=== PATIENT | female | born 1995 | race Caucasian/White ===

== ENCOUNTER 2017-09-19 10:13 | Emergency (ER) | payer MEDICARE ==
[2017-09-19] MEDS ORDERED: SODIUM CHLORIDE 0.9% 1,000 ML IV ONE (11:20)
[2017-09-19 11:54] LABS: Appearance,Urine Clear (Clear); Basophils # (A) 0.1 k/uL (0-0.2); Basophils % (A) 1 %; Bilirubin,Urine Negative (Negative); Blood,Urine Negative (Negative); Color,Urine Light Yellow; Eosinophils # (A) 0.2 k/uL (0-0.7); Eosinophils % (A) 2 %; Glucose,Urine (UA) Negative (Negative); HCT 43.6 % (34.0-46.0); HGB 15.3 gm/dL (11.4-16.0); Ketones,Urine Negative (Negative); Leukocyte Esterase,Urine Negative (Negative); Lymphocytes # (A) 2.8 k/uL (1.0-4.8); Lymphocytes % (A) 26 %; MCH 30.9 pg (25.0-35.0); MCV 88.3 fL (80.0-100.0); Mean Platelet Volume 6.4; Monocytes # (A) 0.7 k/uL (0-1.0); Monocytes % (A) 7 %; Neutrophils # (A) 6.6 k/uL (1.3-7.7); Neutrophils % (A) 62 %; Nitrite,Urine Negative (Negative); PH, Urine 6.5 (5.0-8.0); Platelet Count 336 k/uL (150-450); Protein,Urine Negative (Negative); RBC 4.94 m/uL (3.80-5.40); RDW 12.5 % (11.5-15.5); Specific Gravity,Urine 1.005 (1.001-1.035); Urobilinogen,Urine <2.0 mg/dL (<2.0); WBC 10.6 k/uL (4.0-11.0)
--- NOTE | 2017-09-19 12:00 | ED ---
General Adult HPI - General Chief complaint: Vaginal Bleeding Stated complaint: Vaginal bleeding/ craming 8 weeks Time Seen by Provider: 09/19/17 11:12 Source: patient Mode of arrival: ambulatory Limitations: no limitations - History of Present Illness Initial comments: 21 years old female complaining about lower abdominal cramps she is 8 weeks and she noticed some off-and-on vaginal bleed that been going on for last 2 days it was quite heavy last night slow down now she still has a cramps but she refused any pain meds denies any fever no chills this is her first ever has no history of ectopics in the in the past where another no ectopic history in the family as well. Review of system is unremarkable otherwise no frequency urgency dysuria. Patient stated she had a 3 past at home those all 3 were positive - Related Data Home Medications Medication Instructions Recorded Confirmed Bko-Tkyf-Epxbj Acid 1 cap PO PC-LUNCH 09/19/17 09/19/17 [-U Capsule (formulary)] Allergies Allergy/AdvReac Type Severity Reaction Status Date / Time No Known Allergies Allergy Verified 09/19/17 11:07 Review of Systems ROS Statement: Those systems with pertinent positive or pertinent negative responses have been documented in the HPI. ROS Other: All systems not noted in ROS Statement are negative. Past Medical History Additional Past Medical History / Comment(s): POLICYSTIC OVARIAN SYNDROME. History of Any Multi-Drug Resistant Organisms: None Reported Past Surgical History: Orthopedic Surgery Additional Past Surgical History / Comment(s): KNEE SURGERY Past Psychological History: No Psychological Hx Reported Smoking Status: Current every day smoker Past Alcohol Use History: None Reported Past Drug Use History: None Reported General Exam - General Exam Comments Initial Comments: General: The patient is awake and alert, in no distress, and does not appear acutely ill. Skin: Skin is warm and dry and no rashes or lesions are noted. Eye: Pupils are equal, round and reactive to light, extra-ocular movements are intact; there is normal conjunctiva bilaterally. Ears, nose, mouth and throat: There are moist mucous membranes and no oral lesions. Neck: The neck is supple, there is no tenderness or JVD. Cardiovascular: There is a regular rate and rhythm. No murmur, rub or gallop is appreciated. Respiratory: To auscultation bilateral, no wheezing no rhonchi no distress respiratory garnica noticed Gastrointestinal: Mild tenderness noticed in the right lower quadrant area, suprapubic area and the area over the left ovary Back: There is no tenderness to palpation in the midline. There is no obvious deformity. Musculoskeletal: Normal ROM, no tenderness, There is no pedal edema. There is no calf tenderness or swelling. No cords were appreciated. Neurological: CN II-XII intact, Cranial nerves III through XII are intact. There are no obvious motor or sensory deficits. Coordination appears grossly intact. Speech is normal. Psychiatric: Cooperative, appropriate mood & affect, normal judgment. Limitations: no limitations Course Vital Signs 09/19/17 10:49 Temperature 98 F Pulse Rate 95 Respiratory 16 Rate Blood Pressure 138/76 O2 Sat by Pulse 99 Oximetry Patient is reassessed, urinalysis, CBC, comprehensive metabolic [id number] unremarkable ultrasound of the pelvis ruled out any intrauterine , Patient is reassessed 3 times, labs reviewed imaging was reviewed and discussed with the patient's patient quantitative beta hCG is very low, as soon as we can do the pelvic exam disposition be done she is advised to follow with the serial beta hCG quantitative, , Pelvic exam did not show any lesions on the genitals, no vaginal discharge noticed she is tender or there is a cervical motion tenderness, cultures were done she be discharged to follow with the family doctor to do a beta hCG quantitative or return to ER if pain gets worse or if bleeding gets worse ectopic is still one of the differential diagnosis at this time considering there is no intrauterine Medical Decision Making - Lab Data Result diagrams: 09/19/17 11:45 09/19/17 11:45 Lab Results 09/19/17 09/19/17 09/19/17 Range/Units 11:45 11:45 11:45 WBC 10.6 (4.0-11.0) k/uL RBC 4.94 (3.80-5.40) m/uL Hgb 15.3 (11.4-16.0) gm/dL Hct 43.6 (34.0-46.0) % MCV 88.3 (80.0-100.0) fL MCH 30.9 (25.0-35.0) pg MCHC 35.0 (31.0-37.0) g/dL RDW 12.5 (11.5-15.5) % Plt Count 336 (150-450) k/uL Neutrophils % 62 % Lymphocytes % 26 % Monocytes % 7 % Eosinophils % 2 % Basophils % 1 % Neutrophils # 6.6 (1.3-7.7) k/uL Lymphocytes # 2.8 (1.0-4.8) k/uL Monocytes # 0.7 (0-1.0) k/uL Eosinophils # 0.2 (0-0.7) k/uL Basophils # 0.1 (0-0.2) k/uL Sodium 144 (137-145) mmol/L Potassium 4.5 (3.5-5.1) mmol/L Chloride 105 (98-107) mmol/L Carbon Dioxide 27 (22-30) mmol/L Anion Gap 12 mmol/L BUN 10 (7-17) mg/dL Creatinine 0.52 (0.52-1.04) mg/dL Est GFR (CKD-EPI)AfAm >90 (>60 ml/min/1.73 sqM) Est GFR (CKD-EPI)NonAf >90 (>60 ml/min/1.73 sqM) Glucose 81 (74-99) mg/dL Calcium 9.5 (8.4-10.2) mg/dL Total Bilirubin 0.4 (0.2-1.3) mg/dL AST 30 (14-36) U/L ALT 27 (9-52) U/L Alkaline Phosphatase 109 (38-126) U/L Total Protein 7.8 (6.3-8.2) g/dL Albumin 4.4 (3.5-5.0) g/dL HCG, Quant <2.4 mIU/mL Urine Color Light Yellow Urine Appearance Clear (Clear) Urine pH 6.5 (5.0-8.0) Ur Specific [place] 1.005 (1.001-1.035) Urine Protein Negative (Negative) Urine Glucose (UA) Negative (Negative) Urine Ketones Negative (Negative) Urine Blood Negative (Negative) Urine Nitrite Negative (Negative) Urine Bilirubin Negative (Negative) Urine Urobilinogen <2.0 (<2.0) mg/dL Ur Leukocyte Esterase Negative (Negative) Disposition Clinical Impression: Vaginal bleeding Clinical Impression: (Ruled Out): Disposition: HOME SELF-CARE Condition: Good Referrals: Anshul Zamora MD [Primary Care Provider] - 1-2 days
[2017-09-19 12:11] LABS: ALT 27 U/L (9-52); AST 30 U/L (14-36); Albumin 4.4 g/dL (3.5-5.0); Alkaline Phosphatase 109 U/L (38-126); Anion Gap 12 mmol/L; Blood Urea Nitrogen 10 mg/dL (7-17); Calcium 9.5 mg/dL (8.4-10.2); Carbon Dioxide 27 mmol/L (22-30); Chloride 105 mmol/L (98-107); Glucose 81 mg/dL (74-99); Sodium 144 mmol/L (137-145); Total Bilirubin 0.4 mg/dL (0.2-1.3); Total Protein 7.8 g/dL (6.3-8.2)
[2017-09-19 12:12] LABS: Potassium 4.5 mmol/L (3.5-5.1)
[2017-09-19 12:26] LABS: HCG,Quantitative Serum <2.4 mIU/mL
--- NOTE | 2017-09-19 12:56 | US ---
EXAMINATION TYPE: US OB <=14 wks transvag DATE OF EXAM: 09/19/2017 COMPARISON: NONE CLINICAL HISTORY: Pain. EXAM PERFORMED: Transvaginal (TV) and Transabdominal (TA) EXAM MEASUREMENTS: GESTATIONAL AGE / DATING Physician Established: Not yet established Dates by LMP: (8 weeks/5 days) EDC: 04/26/18 Dates by First Scan: No previous this is first scan Dates by Current Scan for: No IUP seen at this time MATERNAL ANATOMY Uterus: 5.4 x 3.2 x 3.9cm Right Ovary: 4.0 x 2.2 x 2.2cm Left Ovary: obscured by overlying bowel gas Post CDS / Adnexa: wnl GESTATION / SURVEY IUP: No IUP seen at this time Date of LMP: 07/20/17 Beta HcG (if available): <2.4 IMPRESSION: No intrauterine is evident.
[2017-09-19 14:46] VITALS: BP 132/68; PULSE 78; RESP 18; TEMP 97.6
[2017-09-21 08:32] LABS: C. trachomatis,PCR Positive (Neg,Equiv); Chlamydia trachomatis Source Cervix; N. gonorrhoeae,PCR Negative (Neg,Equiv); Neisseria Source Cervix
== END 2017-09-19 14:47 | disposition home or self-care (01) ==
LOC: EC 10:13
DX: O20.9 Hemorrhage in early pregnancy, unspecified (principal); O26.891 Other specified pregnancy related conditions, first trimester; R10.31 Right lower quadrant pain; O99.331 Smoking (tobacco) complicating pregnancy, first trimester; F17.200 Nicotine dependence, unspecified, uncomplicated; Z3A.08 8 weeks gestation of pregnancy
CPT/HCPCS: 36415; 76801; 76817; 80053; 81003; 84702; 85025; 87070; 87205; 87491; 87591; 87808; 96360; 96361; 99284

== ENCOUNTER 2018-09-04 19:13 | Emergency (ER) | payer MEDICARE ==
[2018-09-04] MEDS ORDERED: PROMETHAZ-COD 6.25-10 MG/5 ML 5 ML CUP PO STA (20:23)
[2018-09-04] MEDS ORDERED: IBUPROFEN 600 MG TAB PO STA (20:23)
--- NOTE | 2018-09-04 20:54 | XR ---
EXAMINATION: XR chest 2V DATE AND TIME: 09/04/2018 8:44 PM CLINICAL INDICATION: PHH; Pain TECHNIQUE: Departmental protocol COMPARISON: None FINDINGS: The lungs are clear. The pleural spaces are negative. The cardiac silhouette is not enlarged. The remainder of the mediastinal silhouette is unremarkable. The skeletal structures and soft tissues are negative for acute findings. IMPRESSION: NO ACUTE PROCESS.
[2018-09-04] MEDS ORDERED: SODIUM CHLORIDE 0.9% 1,000 ML IV ONE (21:32)
[2018-09-04 22:00] LABS: Basophils % (A) 1 %; Eosinophils % (A) 0 %; HCT 43.7 % (34.0-46.0); HGB 14.5 gm/dL (11.4-16.0); Lymphocytes # (A) 1.6 k/uL (1.0-4.8); Lymphocytes % (A) 19 %; MCH 30.4 pg (25.0-35.0); MCHC 33.3 g/dL (31.0-37.0); MCV 91.3 fL (80.0-100.0); Mean Platelet Volume 6.4; Monocytes # (A) 0.8 k/uL (0-1.0); Monocytes % (A) 9 %; Neutrophils % (A) 69 %; Platelet Count 224 k/uL (150-450); RBC 4.78 m/uL (3.80-5.40); WBC 8.8 k/uL (4.0-11.0)
[2018-09-04 22:07] LABS: ALT 30 U/L (9-52); AST 20 U/L (14-36); Albumin 4.1 g/dL (3.5-5.0); Alkaline Phosphatase 114 U/L (38-126); Anion Gap 10 mmol/L; Blood Urea Nitrogen 9 mg/dL (7-17); Calcium 9.1 mg/dL (8.4-10.2); Carbon Dioxide 24 mmol/L (22-30); Chloride 109 mmol/L (98-107); Glucose 97 mg/dL (74-99); Potassium 3.9 mmol/L (3.5-5.1); Sodium 143 mmol/L (137-145); Total Bilirubin 0.2 mg/dL (0.2-1.3); Total Protein 7.3 g/dL (6.3-8.2)
--- NOTE | 2018-09-04 22:41 | ED ---
General Adult HPI - General Chief complaint: Syncope Stated complaint: Cough Time Seen by Provider: 09/04/18 19:38 Source: patient Mode of arrival: ambulatory Limitations: no limitations - History of Present Illness Initial comments: 22-year-old female patient presents to the emergency department today for evaluation of increasing cough, shortness of breath, and syncope. Patient states that she has diagnosed with influenza A yesterday. States she was started on prednisone, pro-air, and ibuprofen. States she has been sick for the last 4-5 days with cough, nasal congestion, sore throat, and fevers. States that this afternoon she had a coughing episode and went to lie on the couch next thing she knew she woke up on her bedroom floor. She is unsure if she passed out or not. Patient states that she has a persistent cough that causes pain to her chest. She states that she feels short of breath. She denies any sputum production or hemoptysis. Patient denies any current headache, blurred vision, double vision, dizziness, or weakness. Denies any history of syncope. States that she recently did stop taking control. She is unsure she may be . Patient denies any recent rash, abdominal pain, nausea, vomiting, diarrhea, constipation, back pain, numbness, tingling, dizziness, weakness, hematuria, dysuria, urinary urgency, urinary frequency, headache, visual changes, or any other complaints. - Related Data Home Medications Medication Instructions Recorded Confirmed Ibuprofen [Motrin] 800 mg PO TID PRN 09/04/18 09/04/18 predniSONE 10 mg PO DAILY 09/04/18 09/04/18 Previous Rx's Medication Instructions Recorded Azithromycin [Zithromax Z-pack] 0 mg PO DIRECTED #6 tab 09/04/18 Promethazine 6.25MG/5Ml [Phenergan 6.25 mg PO Q6H #100 ml 09/04/18 Syrup] Allergies Allergy/AdvReac Type Severity Reaction Status Date / Time No Known Allergies Allergy Verified 09/04/18 20:49 Review of Systems ROS Statement: Those systems with pertinent positive or pertinent negative responses have been documented in the HPI. ROS Other: All systems not noted in ROS Statement are negative. Past Medical History Additional Past Medical History / Comment(s): POLICYSTIC OVARIAN SYNDROME. History of Any Multi-Drug Resistant Organisms: None Reported Past Surgical History: Orthopedic Surgery Additional Past Surgical History / Comment(s): KNEE SURGERY Past Psychological History: No Psychological Hx Reported Smoking Status: Current every day smoker Past Alcohol Use History: None Reported Past Drug Use History: None Reported General Exam Limitations: no limitations General appearance: alert, in no apparent distress, other (This is a well- developed, well-nourished adult female patient in no acute distress. Vital signs upon presentation are temperature 98.5F, pulse 80, respirations 20, blood pressure 127/88, pulse ox 99% on room air.) Eye exam: Present: normal appearance, PERRL, EOMI. Absent: scleral icterus, conjunctival injection, periorbital swelling ENT exam: Present: normal exam, normal oropharynx, mucous membranes moist, TM's normal bilaterally Respiratory exam: Present: normal lung sounds bilaterally. Absent: respiratory distress, wheezes, rales, rhonchi, stridor Cardiovascular Exam: Present: normal rhythm, tachycardia, normal heart sounds. Absent: systolic murmur, diastolic murmur, rubs, gallop, clicks GI/Abdominal exam: Present: soft, normal bowel sounds. Absent: distended, tenderness, guarding, rebound, rigid Neurological exam: Present: alert, oriented X3, CN II-XII intact, other (Strength in all 4 extremities is 5/5.) Psychiatric exam: Present: normal affect, normal mood Skin exam: Present: warm, dry, intact, normal color. Absent: rash Course Vital Signs 09/04/18 09/04/18 09/04/18 19:32 19:47 22:52 Temperature 98.5 F 98.8 F Pulse Rate 108 H 75 Pulse Rate [ 104 H Supine] Respiratory 20 18 Rate Blood Pressure 127/88 107/57 O2 Sat by Pulse 99 100 Oximetry 09/04/18 23:55 Temperature 98.6 F Pulse Rate 72 Pulse Rate [ Supine] Respiratory 18 Rate Blood Pressure 111/60 O2 Sat by Pulse 98 Oximetry EKG Findings - EKG Comments: EKG Findings:: EKG obtained at 1947 shows sinus tachycardia with a ventricular rate of 104, RI interval 128, QRS duration 76, QT 346, QTc 454. No evidence of ST elevation or depression. Medical Decision Making - Medical Decision Making 22-year-old female patient presents to the emergency department today for evaluation of increasing cough, shortness of breath, chest pain and a syncopal episode at home. She was diagnosed with influenza A yesterday. She is currently taking ibuprofen for fever, prednisone, and using a Pro Air inhaler. Physical examination is relatively unremarkable. Lungs are clear to auscultation with good air movement. She is neurologically intact with no focal deficits. Labs reviewed and did reveal an elevated d-dimer at 1.15, we did obtain CT angiography of the chest to rule out pulmonary embolism, there is no evidence for pulmonary embolism at this time. She did exhibit evidence of bronchitis, pneumonitis, and enlarged perihilar lymph nodes. I did discuss findings and results with the patient and she'll be discharged home with a prescription for azithromycin. She is instructed to continue taking her steroids and using the Pro Air inhaler. She'll be given a prescription for cough medication. She was instructed to inform her primary care physician of the enlarged lymph nodes have repeat testing. She is instructed to follow-up with her primary care physician for recheck as soon as possible. Return parameters were discussed in detail. She verbalizes understanding and agreed with this plan. - Lab Data Result diagrams: 09/04/18 21:45 09/04/18 21:45 Lab Results 09/04/18 09/04/18 09/04/18 Range/Units 21:45 21:45 21:45 WBC 8.8 (4.0-11.0) k/uL RBC 4.78 (3.80-5.40) m/uL Hgb 14.5 (11.4-16.0) gm/dL Hct 43.7 (34.0-46.0) % MCV 91.3 (80.0-100.0) fL MCH 30.4 (25.0-35.0) pg MCHC 33.3 (31.0-37.0) g/dL RDW 13.0 (11.5-15.5) % Plt Count 224 (150-450) k/uL Neutrophils % 69 % Lymphocytes % 19 % Monocytes % 9 % Eosinophils % 0 % Basophils % 1 % Neutrophils # 6.0 (1.3-7.7) k/uL Lymphocytes # 1.6 (1.0-4.8) k/uL Monocytes # 0.8 (0-1.0) k/uL Eosinophils # 0.0 (0-0.7) k/uL Basophils # 0.0 (0-0.2) k/uL D-Dimer 1.15 H (<0.60) mg/L FEU Sodium 143 (137-145) mmol/L Potassium 3.9 (3.5-5.1) mmol/L Chloride 109 H (98-107) mmol/L Carbon Dioxide 24 (22-30) mmol/L Anion Gap 10 mmol/L BUN 9 (7-17) mg/dL Creatinine 0.60 (0.52-1.04) mg/dL Est GFR (CKD-EPI)AfAm >90 (>60 ml/min/1.73 sqM) Est GFR (CKD-EPI)NonAf >90 (>60 ml/min/1.73 sqM) Glucose 97 (74-99) mg/dL Calcium 9.1 (8.4-10.2) mg/dL Total Bilirubin 0.2 (0.2-1.3) mg/dL AST 20 (14-36) U/L ALT 30 (9-52) U/L Alkaline Phosphatase 114 (38-126) U/L Total Protein 7.3 (6.3-8.2) g/dL Albumin 4.1 (3.5-5.0) g/dL Urine HCG, Qual (Not Detectd) 09/04/18 Range/Units 21:45 WBC (4.0-11.0) k/uL RBC (3.80-5.40) m/uL Hgb (11.4-16.0) gm/dL Hct (34.0-46.0) % MCV (80.0-100.0) fL MCH (25.0-35.0) pg MCHC (31.0-37.0) g/dL RDW (11.5-15.5) % Plt Count (150-450) k/uL Neutrophils % % Lymphocytes % % Monocytes % % Eosinophils % % Basophils % % Neutrophils # (1.3-7.7) k/uL Lymphocytes # (1.0-4.8) k/uL Monocytes # (0-1.0) k/uL Eosinophils # (0-0.7) k/uL Basophils # (0-0.2) k/uL D-Dimer (<0.60) mg/L FEU Sodium (137-145) mmol/L Potassium (3.5-5.1) mmol/L Chloride (98-107) mmol/L Carbon Dioxide (22-30) mmol/L Anion Gap mmol/L BUN (7-17) mg/dL Creatinine (0.52-1.04) mg/dL Est GFR (CKD-EPI)AfAm (>60 ml/min/1.73 sqM) Est GFR (CKD-EPI)NonAf (>60 ml/min/1.73 sqM) Glucose (74-99) mg/dL Calcium (8.4-10.2) mg/dL Total Bilirubin (0.2-1.3) mg/dL AST (14-36) U/L ALT (9-52) U/L Alkaline Phosphatase (38-126) U/L Total Protein (6.3-8.2) g/dL Albumin (3.5-5.0) g/dL Urine HCG, Qual Not Detected (Not Detectd) - Radiology Data Radiology results: report reviewed, image reviewed Two-view x-ray of the chest is obtained. Report is reviewed in its entirety. Impression by Dr. Pau Benitez shows no acute process. CT angiography of the chest was obtained. Report was reviewed in its entirety. Impression by Dr. Pau Benitez shows no evidence of filling defect to suggest pulmonary embolism. The central airways are patent. Bilateral geographic Mosaic appearance of the lungs in appearance of air trapping at the right middle lobe. Diffuse appearing bronchial wall thickening may represent bronchitis. Patchy bilateral ill-defined perihilar groundglass opacities may be related to pneumonitis or edema, clinically correlate. Suggestion of mild bilateral hilar adenopathy. Disposition Clinical Impression: Influenza A, Pneumonitis, Mediastinal lymphadenopathy Disposition: HOME SELF-CARE Condition: Good Instructions (If sedation given, give patient instructions): Influenza (ED), Pneumonia (ED) Additional Instructions: Take medications as directed. Follow-up with your primary care physician for recheck in 1-2 days. Inform your doctor of your enlarged lymph nodes in your chest, and that we recommended repeat testing. Return to the emergency department immediately for any new, worsening, or concerning symptoms. Prescriptions: Promethazine 6.25MG/5Ml [Phenergan Syrup] 6.25 mg PO Q6H #100 ml Azithromycin [Zithromax Z-pack] 0 mg PO DIRECTED #6 tab Is patient prescribed a controlled substance at d/c from ED?: No Referrals: Anshul Zamora MD [Primary Care Provider] - 1-2 days Time of Disposition: 23:29
[2018-09-04 22:55] VITALS: RESP 18
--- NOTE | 2018-09-04 23:06 | CT ---
History: ITS.REASON CT Reason: Pain Exam: CTA CHEST MIP images obtained Technique more: CTDI is 8.1 mGy and DLP is 289.6 mGy-cm. Technique more: This CT exam was performed using one or more of the following dose reduction techniques: automated exposure control, adjustment of the mA and/or kV according to patient size, and/or use of iterative reconstruction technique. Comparison: FINDINGS: No evidence of filling defect to suggest pulmonary embolism. Thoracic aorta and visualized great vessels appear within limits. No pericardial or pleural effusion. The central airways are patent. Bilateral geographic mosaic appearance of the lungs and appearance of air trapping at the right middle lobe. Diffuse appearing bronchial wall thickening may represent bronchitis. Patchy bilateral ill-defined perihilar ground glass opacities may be related to pneumonitis or edema, clinically correlate. Suggestion of mild bilateral hilar adenopathy. Sequela of previous granulomatous disease noted. IMPRESSION: No evidence of filling defect to suggest pulmonary embolism. The central airways are patent. Bilateral geographic mosaic appearance of the lungs and appearance of air trapping at the right middle lobe. Diffuse appearing bronchial wall thickening may represent bronchitis. Patchy bilateral ill-defined perihilar ground glass opacities may be related to pneumonitis or edema, clinically correlate. Suggestion of mild bilateral hilar adenopathy.
[2018-09-04] MEDS ORDERED: AZITHROMYCIN 500 MG TAB PO STA (23:29)
[2018-09-04 23:57] VITALS: BP 111/60; PULSE 72; TEMP 98.6
== END 2018-09-05 | disposition home or self-care (01) ==
LOC: EC 19:13
DX: J10.00 Influenza due to other identified influenza virus with unspecified type of pneumonia (principal); R59.0 Localized enlarged lymph nodes; J40 Bronchitis, not specified as acute or chronic; R79.1 Abnormal coagulation profile; R00.0 Tachycardia, unspecified; R55 Syncope and collapse; F17.200 Nicotine dependence, unspecified, uncomplicated; Z79.52 Long term (current) use of systemic steroids
CPT/HCPCS: 36415; 93005; 85379; 80053; 85025; 81025; 71046; 71275; 99284; 96360; 96361; Q9967

== ENCOUNTER 2018-10-27 22:10 | Emergency (ER) | payer MEDICARE ==
[2018-10-27 22:23] VITALS: BP 119/75; PULSE 85; RESP 18; TEMP 98.2
[2018-10-27] MEDS ORDERED: LIDOCAINE 1% INJ 10MG/ML (20 ML MDV) SQ ONE (23:00)
--- NOTE | 2018-10-27 23:17 | ED ---
General Adult HPI - General Chief complaint: Back Pain/Injury Stated complaint: Lump on tail bone Time Seen by Provider: 10/27/18 22:42 Source: patient Mode of arrival: ambulatory Limitations: no limitations - History of Present Illness Initial comments: 23-year-old female patient presents to the emergency department today for evaluation of a "lump" to her tailbone region with pain. Patient states she noticed the area 2 days ago and has been worsening since. Patient states the area is very tender to touch. She denies any drainage from the region. Denies any history of similar symptoms. Denies any fever or chills with this. Denies any difficulty with bowel movements or urination. Denies chance of . Patient denies any recent rash, shortness breath, chest pain, abdominal pain, nausea, vomiting, diarrhea, constipation, numbness, tingling, dizziness, weakness, hematuria, dysuria, urinary urgency, urinary frequency, headache, visual changes, or any other complaints. - Related Data Home Medications Medication Instructions Recorded Confirmed Ibuprofen [Motrin Ib] 400 mg PO Q6H PRN 10/27/18 10/27/18 Previous Rx's Medication Instructions Recorded Ibuprofen [Motrin] 600 mg PO Q8HR PRN #30 tab 10/27/18 Sulfamethoxazole/Trimethoprim 1 each PO BID #20 tablet 10/27/18 [Bactrim DS 800-160 mg] Allergies Allergy/AdvReac Type Severity Reaction Status Date / Time No Known Allergies Allergy Verified 10/27/18 22:46 Review of Systems ROS Statement: Those systems with pertinent positive or pertinent negative responses have been documented in the HPI. ROS Other: All systems not noted in ROS Statement are negative. Past Medical History Additional Past Medical History / Comment(s): POLICYSTIC OVARIAN SYNDROME. History of Any Multi-Drug Resistant Organisms: None Reported Past Surgical History: Orthopedic Surgery Additional Past Surgical History / Comment(s): KNEE SURGERY Past Psychological History: No Psychological Hx Reported Smoking Status: Current every day smoker Past Alcohol Use History: Occasional Past Drug Use History: None Reported General Exam Limitations: no limitations General appearance: alert, in no apparent distress, other (Social well- developed, well-nourished adult female patient in no acute distress. Vital signs upon presentation are temperature 98.2F, pulse 85, respirations 18, blood pressure 119/75, pulse ox 99% on room air.) Eye exam: Present: normal appearance, PERRL, EOMI. Absent: scleral icterus, conjunctival injection, periorbital swelling ENT exam: Present: normal exam, normal oropharynx, mucous membranes moist Respiratory exam: Present: normal lung sounds bilaterally. Absent: respiratory distress, wheezes, rales, rhonchi, stridor Cardiovascular Exam: Present: regular rate, normal rhythm, normal heart sounds. Absent: systolic murmur, diastolic murmur, rubs, gallop, clicks Back exam: Present: other (patient has 1cm abscess noted to the upper gluteal cleft consistent with pilonidal abscess. No surrounding cellulitis.). Absent: normal inspection Neurological exam: Present: alert, oriented X3, CN II-XII intact Psychiatric exam: Present: normal affect, normal mood Skin exam: Present: warm, dry, intact, normal color. Absent: rash Course Vital Signs 10/27/18 22:21 Temperature 98.2 F Pulse Rate 85 Respiratory 18 Rate Blood Pressure 119/75 O2 Sat by Pulse 99 Oximetry Procedures - Incision & Drainage Consent Obtained: verbal consent Indication: Pilonidal abscess Site: other (Upper gluteal fold) Size (cm): 1 Anesthetic Used: lidocaine 1% Amount (mLs): 5 I&D Cleaning Method: Betadine Scalpel Used: #11 Needle Aspiration Performed?: No Irrigation Performed?: No I&D Drainage Obtained: Pus, Blood Packing: Iodoform Culture Obtained?: Yes Patient Tolerated Procedure: well, no complications Medical Decision Making - Medical Decision Making 23-year-old female patient presents the emergency department today for evaluation of abscess to the upper gluteal fold. Physical examination did reveal 1 cm pilonidal abscess. Did perform incision and drainage should obtain culture. The area was packed with 1/4 inch iodoform packing material. Patient was started on Bactrim and given medication for pain. She is educated regarding warm compresses and sitz baths. She is instructed to follow-up with general surgery for further evaluation of the area. Return parameters were discussed in detail. She verbalizes understanding and agrees this plan. Disposition Clinical Impression: Pilonidal abscess Disposition: HOME SELF-CARE Condition: Good Instructions (If sedation given, give patient instructions): Pilonidal Cyst (ED) Additional Instructions: Do warm sitz baths or warm compresses to the area. Leave packing in for 3 days, remove after this time period. Call the surgeon for further evaluation of the area. Complete antibiotic prescription in full. Return to the emergency department immediately for any new, worsening, or concerning symptoms. Prescriptions: Sulfamethoxazole/Trimethoprim [Bactrim DS 800-160 mg] 1 each PO BID #20 tablet Ibuprofen [Motrin] 600 mg PO Q8HR PRN #30 tab PRN Reason: Pain Is patient prescribed a controlled substance at d/c from ED?: No Referrals: Anshul Zamora MD [Primary Care Provider] - 1-2 days Darío Mcintyre MD [STAFF PHYSICIAN] - 1-2 days Time of Disposition: 23:57
[2018-10-27] MEDS ORDERED: SULFAMETH-TMP DS STARTER PACK 2 TAB BTL PO STA (23:54)
[2018-10-27] MEDS ORDERED: IBUPROFEN 600 MG STARTER PACK 4 TAB BTL PO STA (23:54)
[2018-10-27] MEDS ORDERED: ACET/COD 300 MG/30 MG STARTER PACK 6 TAB BTL PO STA (23:54)
== END 2018-10-28 00:14 | disposition home or self-care (01) ==
LOC: EC 22:10
DX: L05.01 Pilonidal cyst with abscess (principal); F17.200 Nicotine dependence, unspecified, uncomplicated
CPT/HCPCS: 87070; 87205; 99283; 10080; J2001

== ENCOUNTER 2019-01-13 22:54 | Emergency (ER) | payer BC, MEDICARE ==
[2019-01-13] MEDS ORDERED: ONDANSETRON ODT 4 MG TAB PO STA (23:17)
[2019-01-13 23:25] LABS: Appearance,Urine Clear (Clear); Bilirubin,Urine Negative (Negative); Blood,Urine Negative (Negative); Color,Urine Light Yellow; Glucose,Urine (UA) Negative (Negative); Ketones,Urine Negative (Negative); Leukocyte Esterase,Urine Negative (Negative); Nitrite,Urine Negative (Negative); Protein,Urine Negative (Negative); Specific Gravity,Urine 1.006 (1.001-1.035); Urobilinogen,Urine <2.0 mg/dL (<2.0)
--- NOTE | 2019-01-13 23:28 | ED ---
Abdominal Pain HPI - General Chief Complaint: Abdominal Pain Stated Complaint: Abd pain Time Seen by Provider: 01/13/19 23:04 Source: patient Mode of arrival: ambulatory - History of Present Illness Initial Comments: This patient is 23-year-old woman who complains of having approximately 2 hours of crampy suprapubic pain. She states it started approximately 2 hours ago while she was watching television. Pain is somewhat colicky in nature. She states currently it is mild but has been up to severe intensity. She has noticed it gets a little better if she assumes a position. The pain was a little worse when she was walking. She had some associated nausea and vomiting. The patient also states that she has not had a menstrual cycle for 2 months now. The last one was approximately November 11. She denies change in urination or bowel movements. No vaginal discharge. Patient declines analgesic at initial history and physical does request something for nausea. MD Complaint: abdominal pain Onset/Timin -: hour(s) Location: suprapubic Radiation: none Migration to: no migration Severity: moderate Quality: cramping Consistency: constant Improves With: nothing Worsens With: nothing Associated Symptoms: nausea, vomiting - Related Data LMP Date: 11/11/18 LMP (females 10-50): 2 months Home Medications Medication Instructions Recorded Confirmed Acetaminophen Tab [Tylenol Tab] 650 mg PO Q6H PRN 01/13/19 01/13/19 Previous Rx's Medication Instructions Recorded Dicyclomine [Bentyl] 20 mg PO QID #15 tablet 01/14/19 Allergies Allergy/AdvReac Type Severity Reaction Status Date / Time No Known Allergies Allergy Verified 01/13/19 23:11 Review of Systems ROS Statement: Those systems with pertinent positive or pertinent negative responses have been documented in the HPI. ROS Other: All systems not noted in ROS Statement are negative. Constitutional: Denies: fever, chills Respiratory: Denies: cough, dyspnea Cardiovascular: Denies: chest pain, palpitations, edema, syncope Gastrointestinal: Reports: abdominal pain, nausea, vomiting. Denies: diarrhea, constipation, melena, hematochezia Genitourinary: Reports: abnormal menses. Denies: dysuria, hematuria, discharge Musculoskeletal: Denies: back pain Skin: Denies: rash Neurological: Denies: headache Past Medical History Additional Past Medical History / Comment(s): POLICYSTIC OVARIAN SYNDROME. History of Any Multi-Drug Resistant Organisms: None Reported Past Surgical History: Orthopedic Surgery Additional Past Surgical History / Comment(s): KNEE SURGERY Past Psychological History: No Psychological Hx Reported Smoking Status: Current every day smoker Past Alcohol Use History: Occasional Past Drug Use History: None Reported General Exam General appearance: alert, in no apparent distress Head exam: Present: atraumatic, normocephalic Eye exam: Present: normal appearance. Absent: scleral icterus, conjunctival injection Neck exam: Present: normal inspection Respiratory exam: Present: normal lung sounds bilaterally. Absent: respiratory distress, wheezes, rales, rhonchi, stridor Cardiovascular Exam: Present: regular rate, normal rhythm, normal heart sounds. Absent: systolic murmur, diastolic murmur, rubs, gallop GI/Abdominal exam: Present: soft, normal bowel sounds. Absent: distended, tenderness, guarding, rebound, rigid, mass, pulsatile mass, hernia Extremities exam: Present: normal inspection, normal capillary refill. Absent: pedal edema, calf tenderness Back exam: Present: normal inspection. Absent: CVA tenderness (R), CVA tenderness (L) Neurological exam: Present: alert Skin exam: Present: warm, dry, intact, normal color. Absent: rash Course Vital Signs 01/13/19 01/14/19 23:00 01:48 Temperature 97.6 F 97.5 F L Pulse Rate 94 83 Respiratory 17 18 Rate Blood Pressure 152/85 117/68 O2 Sat by Pulse 99 98 Oximetry Medical Decision Making - Lab Data Result diagrams: 01/14/19 00:25 01/14/19 00:25 Lab Results 01/13/19 01/13/19 01/14/19 Range/Units 23:10 23:10 00:25 WBC (3.8-10.6) k/uL RBC (3.80-5.40) m/uL Hgb (11.4-16.0) gm/dL Hct (34.0-46.0) % MCV (80.0-100.0) fL MCH (25.0-35.0) pg MCHC (31.0-37.0) g/dL RDW (11.5-15.5) % Plt Count (150-450) k/uL Neutrophils % % Lymphocytes % % Monocytes % % Eosinophils % % Basophils % % Neutrophils # (1.3-7.7) k/uL Lymphocytes # (1.0-4.8) k/uL Monocytes # (0-1.0) k/uL Eosinophils # (0-0.7) k/uL Basophils # (0-0.2) k/uL Sodium 140 (137-145) mmol/L Potassium 3.8 (3.5-5.1) mmol/L Chloride 107 (98-107) mmol/L Carbon Dioxide 24 (22-30) mmol/L Anion Gap 9 mmol/L BUN 10 (7-17) mg/dL Creatinine 0.61 (0.52-1.04) mg/dL Est GFR (CKD-EPI)AfAm >90 (>60 ml/min/1.73 sqM) Est GFR (CKD-EPI)NonAf >90 (>60 ml/min/1.73 sqM) Glucose 90 (74-99) mg/dL Calcium 9.3 (8.4-10.2) mg/dL Total Bilirubin 0.3 (0.2-1.3) mg/dL AST 24 (14-36) U/L ALT 21 (9-52) U/L Alkaline Phosphatase 115 (38-126) U/L Total Protein 7.1 (6.3-8.2) g/dL Albumin 4.3 (3.5-5.0) g/dL Amylase 53 (30-110) U/L Lipase 161 (23-300) U/L Urine Color Light Yellow Urine Appearance Clear (Clear) Urine pH 7.0 (5.0-8.0) Ur Specific [place] 1.006 (1.001-1.035) Urine Protein Negative (Negative) Urine Glucose (UA) Negative (Negative) Urine Ketones Negative (Negative) Urine Blood Negative (Negative) Urine Nitrite Negative (Negative) Urine Bilirubin Negative (Negative) Urine Urobilinogen <2.0 (<2.0) mg/dL Ur Leukocyte Esterase Negative (Negative) Urine HCG, Qual Not Detected (Not Detectd) 01/14/19 Range/Units 00:25 WBC 18.7 H (3.8-10.6) k/uL RBC 4.96 (3.80-5.40) m/uL Hgb 14.4 (11.4-16.0) gm/dL Hct 46.3 H (34.0-46.0) % MCV 93.4 (80.0-100.0) fL MCH 29.1 (25.0-35.0) pg MCHC 31.1 (31.0-37.0) g/dL RDW 12.9 (11.5-15.5) % Plt Count 260 (150-450) k/uL Neutrophils % 74 % Lymphocytes % 18 % Monocytes % 5 % Eosinophils % 1 % Basophils % 0 % Neutrophils # 13.8 H (1.3-7.7) k/uL Lymphocytes # 3.4 (1.0-4.8) k/uL Monocytes # 1.0 (0-1.0) k/uL Eosinophils # 0.2 (0-0.7) k/uL Basophils # 0.0 (0-0.2) k/uL Sodium (137-145) mmol/L Potassium (3.5-5.1) mmol/L Chloride (98-107) mmol/L Carbon Dioxide (22-30) mmol/L Anion Gap mmol/L BUN (7-17) mg/dL Creatinine (0.52-1.04) mg/dL Est GFR (CKD-EPI)AfAm (>60 ml/min/1.73 sqM) Est GFR (CKD-EPI)NonAf (>60 ml/min/1.73 sqM) Glucose (74-99) mg/dL Calcium (8.4-10.2) mg/dL Total Bilirubin (0.2-1.3) mg/dL AST (14-36) U/L ALT (9-52) U/L Alkaline Phosphatase (38-126) U/L Total Protein (6.3-8.2) g/dL Albumin (3.5-5.0) g/dL Amylase (30-110) U/L Lipase (23-300) U/L Urine Color Urine Appearance (Clear) Urine pH (5.0-8.0) Ur Specific [place] (1.001-1.035) Urine Protein (Negative) Urine Glucose (UA) (Negative) Urine Ketones (Negative) Urine Blood (Negative) Urine Nitrite (Negative) Urine Bilirubin (Negative) Urine Urobilinogen (<2.0) mg/dL Ur Leukocyte Esterase (Negative) Urine HCG, Qual (Not Detectd) Disposition Clinical Impression: Abdominal pain Disposition: HOME SELF-CARE Condition: Good Instructions (If sedation given, give patient instructions): Abdominal Pain (ED) Prescriptions: Dicyclomine [Bentyl] 20 mg PO QID #15 tablet Is patient prescribed a controlled substance at d/c from ED?: No Referrals: None,Stated [REFERRING] - 1-2 days Octavio Cates MD [STAFF PHYSICIAN] - 1-2 days
[2019-01-14 00:33] LABS: Basophils % (A) 0 %; Eosinophils # (A) 0.2 k/uL (0-0.7); Eosinophils % (A) 1 %; HCT 46.3 % (34.0-46.0); HGB 14.4 gm/dL (11.4-16.0); Lymphocytes # (A) 3.4 k/uL (1.0-4.8); Lymphocytes % (A) 18 %; MCH 29.1 pg (25.0-35.0); MCHC 31.1 g/dL (31.0-37.0); MCV 93.4 fL (80.0-100.0); Mean Platelet Volume 6.9; Monocytes % (A) 5 %; Neutrophils # (A) 13.8 k/uL (1.3-7.7); Neutrophils % (A) 74 %; Platelet Count 260 k/uL (150-450); RBC 4.96 m/uL (3.80-5.40); RDW 12.9 % (11.5-15.5); WBC 18.7 k/uL (3.8-10.6)
[2019-01-14 00:46] LABS: ALT 21 U/L (9-52); AST 24 U/L (14-36); African American GFR (CKD) >90 (>60 ml/min/1.73 sqM); Albumin 4.3 g/dL (3.5-5.0); Alkaline Phosphatase 115 U/L (38-126); Amylase 53 U/L (30-110); Anion Gap 9 mmol/L; Blood Urea Nitrogen 10 mg/dL (7-17); Calcium 9.3 mg/dL (8.4-10.2); Carbon Dioxide 24 mmol/L (22-30); Chloride 107 mmol/L (98-107); Glucose 90 mg/dL (74-99); Lipase 161 U/L (23-300); Potassium 3.8 mmol/L (3.5-5.1); Sodium 140 mmol/L (137-145); Total Bilirubin 0.3 mg/dL (0.2-1.3); Total Protein 7.1 g/dL (6.3-8.2)
[2019-01-14 01:48] VITALS: TEMP 97.5
--- NOTE | 2019-01-14 02:12 | US ---
EXAM: US Pelvis, Transvaginal CLINICAL HISTORY: ITS.REASON US Reason: Pain TECHNIQUE: Real-time transvaginal pelvic ultrasound (complete) with image documentation. Transvaginal imaging was used for better evaluation of the endometrium and adnexa. COMPARISON: No relevant prior studies available. FINDINGS: Subcentimeter anechoic area in the endometrium is nonspecific. Correlate with patient's status. No endometrial thickening. Multiple small right ovarian cysts measuring up to 2 cm. Left ovary not seen. No evidence for right ovarian torsion. No adnexal mass. Minimal free fluid. IMPRESSION: See above
--- NOTE | 2019-01-14 03:10 | XR ---
EXAM: XR Abdomen, 1 View CLINICAL HISTORY: ITS.REASON XR Reason: Pain TECHNIQUE: Frontal supine view of the abdomen/pelvis. COMPARISON: No relevant prior studies available. FINDINGS: Gastrointestinal tract: Copious amounts of stool. No dilation. Bones/joints: No acute fracture. No dislocation. IMPRESSION: No acute findings.
[2019-01-14] MEDS ORDERED: MAGNESIUM CITRATE 296 ML BOTTLE PO ONE (05:14)
[2019-01-14 05:32] VITALS: BP 118/89; PULSE 70; RESP 16
== END 2019-01-14 05:31 | disposition home or self-care (01) ==
LOC: EC 22:54
DX: R10.9 Unspecified abdominal pain (principal); R11.2 Nausea with vomiting, unspecified; F17.200 Nicotine dependence, unspecified, uncomplicated
CPT/HCPCS: 36415; 74018; 76830; 80053; 81003; 81025; 82150; 83690; 85025; 93976; 99284